=== PATIENT | female | born 1940 | race Caucasian/White ===

== ENCOUNTER 2016-07-03 17:08 | Emergency (ER) | payer OTHER, MEDICARE, BC, MEDICAID ==
[~2016-07-03 17:08] MED LIST: ABACAVIR300 M1; ACETAMINOPHEN325 M2 PO; AL-MAG HYDROX-S30 ML PO; ALBUTEROL2.5 MG/3 M INH; ALBUTEROL2.5 MG/3 M PO; AMIODARONE HCL200 M1 PO; ATIVAN0.5 M1 PO; BACTRIM DS TAB1 EAC2 PO; CALCIUM 600 +1 EA24 PO; CALCIUM 600 +1 EAC2 PO; CALCIUM CITRAT1 EA21 PO; CARBIDOPA-LEVO1 EA11 PO; CARBIDOPA/LEVO 21 EA NG; CHLORASEPTIC LO1 LOZ MM; CIPRO250 MG PO; CLOPIDOGREL75 M1 PO; COUMADIN5 MG PO; DICYCLOMINE HCL20 MG PO; DULCOLAX10 MG/SUPP RC; DULCOLAX5 MG PO; FLEXERIL10 MG PO; FLONASE ALLERG9.9 ML; FLONASE16 GM NS; FLOVENT DISKUS50 MCG NS; HYDROCHLOROTH12.5 M3 PO; HYDROCHLOROTHIA50 M1 PO; INCRUSE ELLI62.5 MCG INH; ISOSORBIDE MONO30 M4 PO; KLOR-CON 1010 ME1 PO; LASIX20 M1 PO; METOPROLOL TART25 M1 PO; MIRAPEX0.125 MG PO; MIRAPEX0.25 M1 PO; MULTIVITAMIN1 TAB PO; NEURONTIN300 MG PO; OXYCODONE/APAP PO; PANTOPRAZOLE SO20 M1 PO; PERCOCET 5-3251 EACH PO; PLAVIX75 M1 PO; POTASSIUM CHLO10 ME2 PO; PROAIR RESPICL90 MCG INH; SENNA PLUS TAB1 EAC1 PO; SENOKOT-S TABLE1 TAB PO; SINEMET ER 50/21 TA1 PO; TIGER BALM PAT1 EAC1 TP; TRAMADOL HCL50 M2 PO; TRAMADOL HCL50 MG PO; TUDORZA PRESS400 MC1; TUDORZA PRESS400 MC1 INH; TYLENOL EXTRA500 M1 PO; TYLENOL500 MG PO; VENTOLIN HFA18 G2 INH; VIBRAMYCIN100 M1 PO; VITAMIN D31000 UNI3 PO; VITAMIN D31000 UNIT PO; VOLTAREN100 G1 TP; WOMEN'S DAILY1 EAC5 PO; XARELTO20 M1 PO
[2016-07-03] MEDS ORDERED: COREG3.125 M1 PO (17:22)
[2016-07-03] MEDS ORDERED: NITROGLYCERIN0.4 M2 SL (17:23)
[2016-07-03] MEDS ORDERED: ADVANCED EYE H1 EAC1 PO (17:30)
[2016-07-03 17:50] LABS: BASO % 0.2 % (0-2); EOS % 5.6 % (0-7); EOSINOPHIL ABSOLUTE COUNT 0.3 tho/cmm (0.0-0.7); HCT-HEMATOCRIT 38.7 % (34.0-49.0); HGB-HEMOGLOBIN 12.9 gm/dl (12.0-15.5); IMMATURE GRANULOCYTES ABSOLUTE 0.02 tho/cmm (0-0.03); IMMATURE GRANULOCYTES PERCENT 0.3 % (0-0.3); LYMPH % 33.1 % (20-45); MCH (MEAN CORPUSCULAR HGB) 31.9 pg (28.0-32.0); MCHC MEAN CORPUSCULAR HGB CONC 33.3 % (32.0-36.0); MCV (MEAN CELL VOLUME) 95.8 fl (82.0-96.0); MEAN PLATELET VOLUME 9.6 cmc (9.4-12.4); MONO % 6.3 % (0-12); MONOCYTE ABSOLUTE COUNT 0.4 tho/cmm (0.0-1.2); NEUTROPHIL ABSOLUTE COUNT 3.2 tho/cmm (1.6-8.0); NEUTROPHIL-AUTOMATED 3.2 tho/cmm (1.6-8.0); NEUTROPHILS % 54.5 % (40-80); PLATELET COUNT 197 tho/cmm (150-450); RED BLOOD COUNT 4.04 mil/cmm (4.00-5.20); RED CELL DISTRIBUTION WIDTH 13.5 % (12.4-16.4); WHITE BLOOD COUNT 5.9 tho/cmm (4.0-10.0)
[2016-07-03 18:07] LABS: ANION GAP 10 mmol/L (0-20); BLOOD UREA NITROGEN 7 mg/dl (6-24); CALCIUM 9.2 mg/dl (8.5-10.5); CARBON DIOXIDE-VENOUS 30 mmol/L (22-32); CHLORIDE 106 mmol/l (96-110); GLUCOSE 135 mg/dL (70-110); POTASSIUM 3.5 mmol/L (3.7-5.1); SODIUM 142 mmol/L (135-145); eGFR VALUE FOR BLACK 74 mL/Min
[2016-07-03] MEDS ORDERED: CYCLOBENZAPRINE10 M1 PO (18:52)
[2016-09-27] MEDS ORDERED: AMANTADINE100 MG PO (15:43)
[2016-09-27] MEDS ORDERED: LASIX20 M1 PO (16:04)
[2016-09-27] MEDS ORDERED: SHOT (16:06)
[2016-09-27] MEDS ORDERED: AZELASTINE137 MCG/01 (16:06)
[2016-09-28] MEDS ORDERED: FLAGYL500 M1 PO (12:59)
== END 2016-07-03 19:13 ==
LOC: EDMED 17:08
PROVIDERS: Emergency Medicine
DX: R07.89 Other chest pain (principal); I48.91 Unspecified atrial fibrillation; I10 Essential (primary) hypertension; G20 Parkinson's disease; K21.9 Gastro-esophageal reflux disease without esophagitis; J44.9 Chronic obstructive pulmonary disease, unspecified; Z86.73 Personal history of transient ischemic attack (TIA), and cerebral infarction without residual deficits; Z90.49 Acquired absence of other specified parts of digestive tract; Z87.891 Personal history of nicotine dependence; Z90.710 Acquired absence of both cervix and uterus; Z79.899 Other long term (current) drug therapy; Z79.51 Long term (current) use of inhaled steroids; V49.50XA Passenger injured in collision with unspecified motor vehicles in traffic accident, initial encounter; Y92.410 Unspecified street and highway as the place of occurrence of the external cause
CPT/HCPCS: J1170; J2405